=== PATIENT | male | born 1970 | race Caucasian/White ===

== ENCOUNTER 2016-10-15 22:34 | Observation (INO) | payer BC ==
[2016-10-15 23:46] LABS: Hematocrit 46 % (42-52); Hemoglobin 15.7 g/dl (14.0-18.0); Mean Corpuscular HGB Conc 34 g/dl (31-36); Mean Corpuscular Hemoglobin 31 pg (27-31); Mean Corpuscular Volume 89 fL (80-94); Mean Platelet Volume 7 um3 (7.4-10.4); Red Blood Count 5.14 10^6/ul (4.0-5.4); Red Cell Distribution Width 13 % (10.5-15); White Blood Count 6.7 10^3/ul (3.5-10.8)
[2016-10-16 00:01] LABS: Albumin 4.4 g/dL (3.2-5.2); BUN/Creatinine Ratio 13.6 (8-20); Calcium 9.2 mg/dL (8.6-10.3); EGFR Non-African American 77.7 (>60); Globulin 2.6 g/dL (2-4); Potassium 3.8 mmol/L (3.5-5.0)
[2016-10-16 00:02] LABS: Total Bilirubin 2.4 mg/dL (0.2-1.0)
[2016-10-16] MEDS ORDERED: NS 0.9% 1000 ML* 1,000 ML IV ONE (01:08)
[2016-10-16] MEDS ORDERED: Morphine INJ* 4 MG/ML 1 ML CARPUJECT IV ONE (01:10)
[2016-10-16] MEDS ORDERED: Ondansetron INJ* 2 MG/ML VIAL IV ONE (01:10)
[2016-10-16] MEDS ORDERED: Iohexol 300* (CONTRAST) 10 ML SDV IV ONE (01:18)
[2016-10-16 01:33] LABS: Urine Bilirubin Negative (Negative); Urine Glucose Negative (Negative); Urine Nitrite Negative (Negative)
[2016-10-16] MEDS: NS 0.9% 1000 ML* 2,000 ML IV ONE ×2 (01:40→02:53)
--- NOTE | 2016-10-16 05:42 | ED ---
Airam Francis Rebecca, scribed for CyrusMichael on 10/16/16 at 0110 . Abdominal Pain/Male - HPI Summary HPI Summary: Pt is a 46 y/o M who presents to ED c/o diffuse abdominal pain. Sx have been intermittent for the last 3 days and are currently mild, ranked 3/10 and characterized as aching. Sx aggravated and alleviated by nothing. Additionally c /o generalized weakness, fever (for 1 day) and vomiting (3x) with episodes of "severe shaking." Denies blood in stools and diarrhea. PMHx Crohn's Disease. Has taken Prednisone the last few days. - History of Current Complaint Chief Complaint: EDWeakness Stated Complaint: SHAKINESS,FEVER Time Seen by Provider: 10/16/16 01:04 Hx Obtained From: Patient Onset/Duration: Lasting Days - 2 days, Still Present Severity Currently: Mild Pain Intensity: 3 Pain Scale Used: 0-10 Numeric Location: Diffuse Character: Other: - Aching Aggravating Factor(s): Nothing Alleviating Factor(s): Nothing Associated Signs And Symptoms: Positive: Fever, Vomiting. Negative: Blood in Stool, Diarrhea - Allergies/Home Medications Allergies/Adverse Reactions: Allergies Allergy/AdvReac Type Severity Reaction Status Date / Time No Known Allergies Allergy Verified 10/15/16 22:41 PMH/Surg Hx/FS Hx/Imm Hx Endocrine/Hematology History: Denies: Hx Diabetes, Hx Thyroid Disease Cardiovascular History: Denies: Hx Hypertension Respiratory History: Denies: Hx Asthma, Hx Chronic Obstructive Pulmonary Disease (COPD) GI History: Reports: Hx Crohn's Disease Denies: Hx Ulcer - Surgical History Surgery Procedure, Year, and Place: 4 hernia repairs, ankle surgery (R), Anal Fistula Infectious Disease History: No Infectious Disease History: Reports: History Other Infectious Disease - left leg infection Denies: Hx Hepatitis, Hx Human Immunodeficiency Virus (HIV), Traveled Outside the [place] in Last 30 Days - Family History Known Family History: Negative: Cardiac Disease, Diabetes - Social History Alcohol Use: Daily Alcohol Amount: 1-2 per day Substance Use Type: Reports: None Smoking Status (MU): Never Smoked Tobacco Review of Systems Positive: Fever, Other - Generalized weakness, episodes of "severe shaking" Positive: Abdominal Pain - Diffuse, Vomiting. Negative: Diarrhea Positive: other - NEGATIVE: blood in stool All Other Systems Reviewed And Are Negative: Yes Physical Exam - Summary Physical Exam Summary: Appearance: Well appearing, no pain distress Skin: warm, dry, reflects adequate perfusion Head/face: normal Eyes: EOMI, HO ENT: normal Neck: supple, nontender Respiratory: CTA, breath sounds present Cardiovascular: RRR, pulses symmetrical Abdomen: diffuse tenderness, more in the RLQ then the LLQ, soft Bowel: present Musculoskeletal: normal, strength/ROM intact Neuro: normal, sensory motor intact, A&Ox3 Triage Information Reviewed: Yes Vital Signs On Initial Exam: Initial Vitals Temp Pulse Resp BP Pulse Ox 98.6 F 125 16 106/58 95 10/15/16 22:38 10/15/16 22:38 10/15/16 22:38 10/15/16 22:38 10/15/16 22:38 Vital Signs Reviewed: Yes - [place] Coma Scale Coma Scale Total: 15 Diagnostics - Vital Signs Vital Signs Temp Pulse Resp BP Pulse Ox 10/15/16 22:42 98.6 F 125 16 106/58 95 10/15/16 22:38 98.6 F 125 16 106/58 95 - Laboratory Lab Results: Lab Results 10/15/16 10/15/16 10/15/16 Range/Units 23:35 23:35 23:35 WBC 6.7 (3.5-10.8) 10^3/ul RBC 5.14 (4.0-5.4) 10^6/ul Hgb 15.7 (14.0-18.0) g/dl Hct 46 (42-52) % MCV 89 (80-94) fL MCH 31 (27-31) pg MCHC 34 (31-36) g/dl RDW 13 (10.5-15) % Plt Count 224 (150-450) 10^3/ul MPV 7 L (7.4-10.4) um3 Neut % (Auto) 96.7 H (38-83) % Lymph % (Auto) 2.5 L (25-47) % [place] % (Auto) 0.7 L (1-9) % Eos % (Auto) 0.1 (0-6) % Baso % (Auto) 0 (0-2) % Absolute Neuts (auto) 6.5 (1.5-7.7) 10^3/ul Absolute Lymphs (auto) 0.2 L (1.0-4.8) 10^3/ul Absolute Monos (auto) 0 (0-0.8) 10^3/ul Absolute Eos (auto) 0 (0-0.6) 10^3/ul Absolute Basos (auto) 0 (0-0.2) 10^3/ul Absolute Nucleated RBC 0 10^3/ul Nucleated RBC % 0 INR (Anticoag Therapy) 1.00 (0.89-1.11) APTT 24.2 L (26.0-36.3) seconds Sodium 134 (133-145) mmol/L Potassium 3.8 (3.5-5.0) mmol/L Chloride 100 L (101-111) mmol/L Carbon Dioxide 24 (22-32) mmol/L Anion Gap 10 (2-11) mmol/L BUN 14 (6-24) mg/dL Creatinine 1.03 (0.67-1.17) mg/dL Est GFR ( Amer) 100.0 (>60) Est GFR (Non-Af Amer) 77.7 (>60) BUN/Creatinine Ratio 13.6 (8-20) Glucose 129 H (70-100) mg/dL Calcium 9.2 (8.6-10.3) mg/dL Total Bilirubin 2.40 H (0.2-1.0) mg/dL AST 17 (13-39) U/L ALT 18 (7-52) U/L Alkaline Phosphatase 46 (34-104) U/L Troponin I 0.00 (<0.04) ng/mL Total Protein 7.0 (6.4-8.9) g/dL Albumin 4.4 (3.2-5.2) g/dL Globulin 2.6 (2-4) g/dL Albumin/Globulin Ratio 1.7 (1-3) Lipase 19 (11.0-82.0) U/L Result Diagrams: 10/15/16 23:35 10/15/16 23:35 Lab Statement: Any lab studies that have been ordered have been reviewed, and results considered in the medical decision making process. - CT CT Abd/Pel CT Interpretation Completed By: Radiologist - Hepatic portal venous gas, which can be associated with inflammatory bowel disease. No pneumatosis in bowel wall to suggest ischemic enteritis. Thickened loop of distal ileum in mid anterior abdomen extending to right lower quadrant, possible acute Crohn's flare or chronic postinflammatory changes. Tethered loops of small bowel, cecum and sigmoid colon in right lower quadrant, probably secondary to chronic scarring. Nearby cecal/ascending colon wall thickening and asjacent fat stranding could represnet a second focus of acute Crohn's flare versus chronic changes. No free air. Appendix not seen. Trace ascites. Hepatosplenomegaly. Unremarkable pancreas , kidneys and glalbladder. Bilateral vasectomy clips. ED physician reviewed radiology report and agrees. Abdominal Pain Fem Course/Dx - Course Assessment/Plan: Pt is a 46 y/o M who presents to ED c/o intermittent diffuse abdominal pain for the last 3 days and are currently mild, ranked 3/10 and characterized as aching. Additionally c/o generalized weakness, fever (for 1 day ) and vomiting (3x) with episodes of "severe shaking." Denies blood in stools and diarrhea. PMHx Crohn's Disease. Has taken Prednisone the last few days. CT Abd/Pel results outlined above. Blood work and UA were done. Troponin of 0.00. In the ED course, pt was given morphine, zofran and fluids. Discussed care of pt with Dr. Roman, hospitalist, who accepts pt for admission. Pt will be admitted with Dx of Crohn's exacerbation. He undestands and agrees. - Diagnoses Differential Diagnosis/HQI/PQRI: Other Provider Diagnoses: Exacerbation of Crohn's disease, Abdominal pain - Provider Notifications Discussed Care Of Patient With: Eldon Roman Time Discussed With Above Provider: 05:14 Instructed by Provider To: Other - Accepts pt for admission Discharge - Discharge Plan Condition: Stable Disposition: ADMITTED TO [facility] Referrals: Peggy Aldana, [facility] [Primary Care Provider] - The documentation as recorded by the Airam lin Rebecca accurately reflects the service I personally performed and the decisions made by , Michael Bridges.
[2016-10-16] MEDS ORDERED: Ondansetron INJ* 2 MG/ML VIAL IV PRN (05:59)
--- NOTE | 2016-10-16 09:21 | RAD ---
Indication: Abdominal pain, Crohn's disease. Contrast: Administered 115.3 ml of OMNIPAQUE 300 mg/ml CT of the abdomen and pelvis was performed after oral and IV contrast administration. Coronal and sagittal reconstructed images were obtained. The liver is normal in size. There are no focal lesions or intrahepatic duct dilatation noted. There is portal venous air noted in the left lobe of the liver. This can be seen in inflammatory bowel disease. There is focal wall thickening of the distal ileum in the right lower quadrant with adjacent infiltration of fat. I cannot totally exclude inflammatory bowel disease in the right lower quadrant. No dilated loops of bowel are noted. There is focal wall thickening of the hepatic flexure. This may also be involved in inflammatory bowel disease. No dilated loops of bowel are noted. The urinary bladder is otherwise unremarkable. The liver and spleen are otherwise unremarkable. No focal lesions or intrahepatic duct dilatation is noted. No adrenal masses are noted. The kidneys demonstrate symmetric nephrograms without focal lesions. No retroperitoneal lymphadenopathy is noted. No dilated loops of bowel are noted. No free fluid is identified. The prostate and seminal vesicles are unremarkable. No hernias are noted. IMPRESSION: Trace amount of portal venous air is noted. No evidence of focal pneumatosis is noted to suggest ischemic bowel disease. Portal venous air could be related to inflammatory bowel disease. Focal wall thickening of the distal ileum and cecum as well as the hepatic flexure is noted. Inflammatory changes are noted in the right lower quadrant. This may represent active areas of inflammatory bowel disease.
[2016-10-16] MEDS: Enoxaparin(*) 40 MG/0.4 ML SYR SUBCUT SCH (09:30)
[2016-10-16] MEDS: methylPREDNISolone SOD 40 MG* 1 ML VIAL IV SCH ×3 (09:30→21:24)
[2016-10-16] MEDS: NS 0.9% 1000 ML* 1,000 ML IV SCH (09:33)
--- NOTE | 2016-10-16 09:54 | HP ---
ADMISSION HISTORY AND PHYSICAL: DATE OF ADMISSION: 10/15/16 PRIMARY CARE PROVIDER: Peggy Aldana NP of [facility] PROXY: His . CODE STATUS: Full. SOURCE OF INFORMATION: History was obtained from interview with the patient's . RELIABILITY: Fair to poor. HISTORY OF PRESENT ILLNESS: This gentleman with past medical history of Crohn' s disease complicated by fistula, status post fistulectomy. He has been in his usual state of health until Friday. Three days prior to presentation, he felt bloated with abdominal pain, and his belly had something hard, which is similar to past Crohn's flares in the past, he started to develop loose stool. He stayed at bed for most of the day on Friday, had decrease p.o. intake, and had an episode of vomiting. He started himself on steroid taper, he took 60 mg on Friday with 40 mg on Friday. He had an episode of chills and shaking, progressive inability to tolerate p.o. abdominal bloating, sensation of feeling unwell for which he presented to the emergency room. At this point, he is having liquid stool. He notes that he has 3 to 4 flares per year, typically self medicates at home with prednisone. In the past, he has been on mercaptopurine, last was at approximately 5 years prior and also been on other steroid sparing agents in the past without great success. PAST MEDICAL HISTORY: Includes: 1. Crohn's disease. 2. Fistulectomy. 3. Bilateral hernia repair. 4. Ankle surgery. MEDICATIONS: No current medications except for self taper of prednisone. ALLERGIES: No known drug allergies. FAMILY HISTORY: Grandfather with CVA, otherwise reviewed and noncontributory. 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 No tobacco. About 1 drink per day of alcohol. REVIEW OF SYSTEMS: As per HPI, otherwise all other systems are negative. PHYSICAL EXAMINATION GENERAL: Lying in bed, slightly diaphoretic, interactive, in no apparent distress. VITAL SIGNS: Blood pressure 96 to 107/64 to 75, heart rate is 95, respiratory rate is 16, T-max in the emergency room is 98.6. HEENT: Oropharynx is clear. He has dry mucous membranes. Sclerae anicteric. NECK: Nonelevated JVD. No cervical or supraclavicular lymphadenopathy. LUNGS: Clear to auscultation. HEART: Has regular rate and rhythm. ABDOMEN: His abdomen is soft, mildly distended, minimal tenderness. EXTREMITIES: Warm and well perfused without clubbing, cyanosis, or edema. NEUROLOGIC: Cranial nerves are intact. He is alert and oriented x3 with no apparent anxiety, agitation, or depression. LABORATORY DATA: Labs reviewed and unremarkable except for mildly elevated bilirubin at 2.0. CT abdomen and pelvis preliminary read impression: Thickened loop of distal ileum in mid anterior abdomen extending to the right lower quadrant possibly acute Crohn's flare of chronic postinflammatory changes. Tethered loops of small bowel, cecum, sigmoid colon in the right lower quadrant probably secondary to chronic . Nearby cecal ascending colon wall thickness and adjacent fat stranding could represent a second focus of acute Crohn's flare versus chronic changes, no free air, appendix not seen. ASSESSMENT AND PLAN: This is a 46-year-old man with past medical history of Crohn's disease presenting with Crohn's flare. Crohn's flare, he is going to receive steroids, start 60 methylprednisone q.8. Liquid diet. If no improvement, we will recommend GI consultation. I suspect him to improve with current regimen. Normal saline 125 mL/hour for 3 additional liters. DVT prophylaxis with enoxaparin. Code status is full. [id number]/[facility] #: [id number] [facility]
[2016-10-16] MEDS ORDERED: Morphine INJ* 2 MG/ML 1 ML CARPUJECT IV PRN (18:42)
--- NOTE | 2016-10-16 20:16 | PN ---
Hospitalist Progress Note I saw Mr. Yu this afternoon. He is feeling much better than last night. He reports improvement in the RLQ pain. He has been able to tolerate ice chips, but still has no interest in eating. He has been afebrile, denies hematochezia , but continues to have liquid stools. He requests morphine PRN, though he does not feel that he needs it now, so I am ordering that, as well as continuation of his IVF. I attempted to call the GI office this afternoon to reach Peggy Aldana, who he has been seeing, but they were already closed. I will order the consult for tomorrow. Continue steroids.
[2016-10-17] MEDS: NS 0.9% 1000 ML* 1,000 ML IV SCH (02:15)
[2016-10-17] MEDS: methylPREDNISolone SOD 40 MG* 1 ML VIAL IV SCH (05:14)
[2016-10-17] MEDS: Enoxaparin(*) 40 MG/0.4 ML SYR SUBCUT SCH (05:15)
[2016-10-17 09:46] LABS: BUN/Creatinine Ratio 20.3 (8-20); Calcium 8.9 mg/dL (8.6-10.3); EGFR African American 158.8 (>60); EGFR Non-African American 123.4 (>60); Potassium 4.4 mmol/L (3.5-5.0)
[2016-10-17 10:57] VITALS: BP 106/50
--- NOTE | 2016-10-18 05:24 | DS ---
CC: Primary Care Provider; Dr. Walker * DISCHARGE SUMMARY: DATE OF ADMISSION: 10/16/16 DATE OF DISCHARGE: 10/17/16 ATTENDING PHYSICIAN: Teri Perez MD *(DICTATED BY TERRY ALBERT) PRIMARY DISCHARGE DIAGNOSIS: Crohn's disease with acute flare. DISCHARGE MEDICATIONS: Prednisone with instructions to take 40 mg x7 days, followed by 30 mg x7 days, followed by 20 mg x7 days, followed by 10 mg x7 days , followed by 5 mg x7 days. Medication Changes: Prednisone as above. HOSPITAL IMAGING: CT of the abdomen and pelvis. The patient has focal wall thickening of the distal ileum and cecum as well as the hepatic flexure, inflammatory changes are noticed in the right lower quadrant. They represent active areas of inflammatory bowel disease. HOSPITAL COURSE: This is a 46-year-old gentleman with known Crohn's disease diagnosed as a teenager with prior complications including fistula, status post fistulectomy greater than 20 years ago, who presented with complaints of right lower quadrant abdominal pain and bloating. The patient reports that his symptoms were similar to his prior Crohn's flare and he attempted to control these with starting oral prednisone at home per his usual routine. He took 60 mg 2 days the day prior and 40 mg the day of admission, but unfortunately his pain continued to progress and he was unable to tolerate anything orally and subsequently presented to the emergency department for further evaluation. Following my initial evaluation, the patient has had an unremarkable CBC, comprehensive metabolic panel, which showed no significant metabolic derangement , total bilirubin was elevated to 2.4. Urinalysis unremarkable. CT of the abdomen and pelvis demonstrated inflammatory changes to the right lower quadrant and his exam showed focal tenderness in that region. No evidence of small bowel obstruction. The patient was started on Solu-Medrol and maintains on clear liquids. After 2 doses of Solu-Medrol, he noted significant improvement of his pain and requested to be advanced to a soft diet. He was able to tolerate some toast and other bread products without severe nausea or vomiting prior to discharge. Frequency of his diarrhea did not change prior to the discharge. He continued to have frequent watery bowel movement, but of low volume and without gross blood. Again, the patient states that symptoms are similar to prior flares. Of note, the patient is not on any disease-modifying agents. He states that he has tried multiple agents in the past without significant improvement. He was previously followed by Dr. Mc, who has subsequently retired and has been seen in followup by Dr. Walker over the last year and a half or so. He states that he generally gets flares of his Crohn's 3 to 4 times yearly, which he manages with prednisone tapers on his own at home. DISPOSITION AND FOLLOWUP PLAN: The patient is being discharged to home with above prednisone taper. He is encouraged to follow up with Dr. Walker within the next 1 to 2 weeks to evaluate his course of treatment. We can evaluate at that time the appropriateness of initiating an additional immune modulatory agent to reduce the frequency of his Crohn's flares. TERRY ALBERT [id number]/[facility] #: [id number] [facility]TDD
== END 2016-10-17 14:19 | disposition home or self-care (01) ==
LOC: ED 22:34 → INTOOBSV 10-16 05:59 → MEDTELE 10-16 05:59
PROVIDERS: ADMIT Internal Medicine; ATTEND Internal Medicine
DX: K50.90 Crohn's disease, unspecified, without complications (principal); R10.31 Right lower quadrant pain; R14.0 Abdominal distension (gaseous); Z79.899 Other long term (current) drug therapy; R11.10 Vomiting, unspecified; R50.9 Fever, unspecified; R53.1 Weakness
CPT/HCPCS: 36415; 74177; 80048; 80053; 81003; 83690; 84484; 85025; 85610; 85730; 99283; G0378; J1650; J2270; J2405; J2920; Q9967